=== PATIENT | female | born 2000 | race African-American/Black ===

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

== ENCOUNTER 2018-01-05 10:07 | Emergency (ER) | payer SELFPAY ==
[2018-01-05 10:46] LABS: BILIRUBIN,URINE SMALL (NEG); CLARITY,URINE TURBID; GLUCOSE,URINE NEGATIVE (NEG); NITRITE,URINE POSITIVE (NEG); PH,URINE 5.5; PROTEIN,URINE >=300 mg/dL (NEG-TRACE)
[2018-01-05 10:54] LABS: COLOR,URINE ORANGE; RBC,URINE TNTC /HPF (0-2)
[2018-01-05 10:55] LABS: BACTERIA,URINE MOD /HPF (0-FEW)
== END 2018-01-05 11:20 | disposition home or self-care (01) ==
LOC: ER 11:20
DX: N39.0 Urinary tract infection, site not specified (principal)
CPT/HCPCS: 81001; 99283